=== PATIENT | female | born 1935 | race Caucasian/White ===

== ENCOUNTER 2020-01-02 00:39 | Inpatient (IN) | payer MEDICARE, OTHER ==
[~2020-01-02] VITALS: Ht 152.4 cm; Wt 63.5 kg
--- NOTE | 2020-01-02 00:01 | NUR ---
RN NOTE RECEIVED PT AWAKE IN BED, AO X 3-4, SPEAKS BULGARIAN ONLY, NO S/SX OF ACUTE DISTRESS AT THIS TIME. NO SOB NOTED. PATIENT'S BREATHING IS EVEN AND UNLABORED. SATURATING AT 98% ON ROOM AIR. NOTED IV SITE ON RIGHT AC G20 WITH NS AT 50 ML/HR; PATENT AND FLUSHING WELL,NO S/S OF INFECTION OR INFILTRATION. EDEMA NOTED ON LEFT HAND. PATIENT IS AMBULATORY WITH CANE. SAFETY MEASURES IMPLEMENTED PER PROTOCOL. PATIENT BED ALARM IS ON. HEAD OF BED ELEVATED. BED IS LOCKED, IN LOWEST POSITION AND SIDE RAILS UP. CALL LIGHT WITHIN REACH OF THE PATIENT. WILL CONTINUE TO MONITOR AND REASSESS FOR ANY CHANGES.
--- NOTE | 2020-01-02 02:00 | NUR ---
MS1 PROFESSIONAL ENGINEER NOTED RECEIVED DIRECT ADMIT FROM [place] THIS 84 YO FEMALE,ALERT,ORIENTED X3,SPEAK TURKMEN,WITH LITTLE LITHUANIAN,WITH CHIEF COMPLAINTS OF SWELLING,PAIN ON LEFT HAND X 3DAYS.BREATHING REGULAR,NO S/S OF RESPIRATORY DISTRESS.SALINE LOCK RIGHT AC #20 INTACT AND PATENT.NO SKIN ISSUES OTHER THAN LEFT HAND.AMBULATE WITH CANE,NO HX OF FALL WITH IN 30 DAYS, BUT [address]PLACE ON TEMPORARY DROPLET ISOLATION,AWAITING COVID TEST RESULT DONE IN [facility].DR GREEN MADE AWARE OF PATIENT ARRIVAL ON THE UNIT,WITH ORDERS NOTED AND CARRIED OUT.FALL PRECAUTION OBSERVED,BEDSIDE COMMODE AT BEDSIDE.BED ON LOWEST POSITION AND LOCKED.BED ALARM.CALL LIGHT IN REACH,NEEDS ANTICIPATED.
[2020-01-02 02:30] VITALS: BP 128/57
[2020-01-02] MEDS ORDERED: ONDANSETRON HCL/PF 4 MG/2 ML VIAL IVP PRN (02:30)
[2020-01-02] MEDS ORDERED: Z GUARD REMEDY 2 OZ OINT TP PRN (02:30)
[2020-01-02] MEDS ORDERED: MAGNESIUM HYDROXIDE 30 ML UDC PO PRN (02:30)
[2020-01-02] MEDS ORDERED: ZOLPIDEM TARTRATE 5 MG TABLET PO PRN (02:30)
[2020-01-02] MEDS ORDERED: ACETAMINOPHEN 325 MG TABLET PO PRN (02:30)
[2020-01-02] MEDS ORDERED: MAG HYDROX/AL HYDROX/SIMETH 30 ML UDC PO PRN (02:30)
[2020-01-02] MEDS ORDERED: CLINDAMYCIN IV RTU IN D5W 900 MG/50 ML PIGGYBACK IV SCH (02:30)
[2020-01-02] MEDS: CLINDAMYCIN IV RTU IN D5W 50 ML IV SCH ×3 (04:42→21:05)
--- NOTE | 2020-01-02 04:42 | NUR ---
SKINNING MACHINE FEEDER NOTES CLINDAMYCIN 900MG IN D5W 50ML ADMINISTERED ORDERED.
--- NOTE | 2020-01-02 06:10 | NUR ---
[id number] GREEN TO REQUEST FOR COVID TEST FOR PATIENT. HE SAID TO CALL [facility] FOR COVID RESULT DONE ON PATIENT.
--- NOTE | 2020-01-02 06:28 | NUR ---
MA1 RN NOTES RESTING COMFORTABLY ON BED,NO PAIN,LEFT HAND ELEVATED ON PILLOWS.SALINE LOCK REMaINS PATENT.DROPLET ISOLATION PENDING COVID TEST RESULT FROM [facility].DR GREEN PER CHARGE NURSE MAURILIO TO CALL [facility] TO GET RESULT OF COVID TEST.CALL LIGHT IN REACH,NEEDS ATTENDED.
[2020-01-02 06:29] LABS: BASOPHILS # (AUTO) 0.1 /CMM (0.0-0.2); BASOPHILS % (AUTO) 0.6 % (0.0-2.0); EOSINOPHILS % (AUTO) 0.3 % (0.0-6.0); HEMATOCRIT 37 % (33-45); HEMOGLOBIN 12.5 g/dL (11.5-14.8); LYMPHOCYTES # (AUTO) 1.5 /CMM (0.8-4.8); LYMPHOCYTES % (AUTO) 13.1 % (20.0-44.0); MEAN CORPUSCULAR HGB CONC 33 g/dl (31.0-36.0); MEAN CORPUSCULAR VOLUME 88 fL (82-100); MONOCYTES # (AUTO) 1.8 /CMM (0.1-1.30); MONOCYTES % (AUTO) 15.6 % (2.0-12.0); NEUTROPHILS # (AUTO) 8.3 /CMM (1.8-8.9); NEUTROPHILS % (AUTO) 70.4 % (43.0-81.0); PLATELET COUNT (AUTO) 217 /CMM (150-450); RED BLOOD CELL COUNT(AUTO) 4.26 MIL/uL (4.0-5.2); WHITE BLOOD COUNT (AUTO) 11.8 K/uL (4.3-11.0)
--- NOTE | 2020-01-02 06:30 | NUR ---
CALLED [facility] TO FOLLOW UP ON COVID TEST RESULT, PER ED STAFF RESULT NOT BACK YET.
[2020-01-02 06:33] LABS: CALCIUM, SERUM 8.5 mg/dL (8.5-10.1); CREATININE 1.1 mg/dL (0.6-1.3); MAGNESIUM 2.2 mg/dL (1.8-2.4); POTASSIUM 3.5 mmol/L (3.5-5.1)
--- NOTE | 2020-01-02 07:35 | NUR ---
RN OPENING NOTES: RECEIVED PATIENT IN BED AWAKE A/O X3. PATIENT IS ON RA 98% TOLERATING WELL. PATIENT DOES NOT SHOW ANY SIGNS OF ANY RESPIRATORY DISTRESS, SOB, DIFFICULTY BREATHING OR ANY PAIN. PTS IV HL AC #20, FLUSHED WELL. INTACT, PATENT, AND DRY. PATIENTS SAFETY MEASURES MAINTAINED, CALL LIGHT WITHIN REACH, WILL CONTINUE TO MONITOR.
[2020-01-02] MEDS ORDERED: METO25TA3 PO (08:06)
[2020-01-02] MEDS ORDERED: DENO60DI SQ (08:06)
[2020-01-02] MEDS ORDERED: LEVO25TA7 PO (08:06)
[2020-01-02] MEDS ORDERED: AMLO10TA7 PO (08:06)
[2020-01-02] MEDS ORDERED: MAGN400T26 PO (08:06)
[2020-01-02] MEDS ORDERED: TRAM50TA2 PO (08:06)
[2020-01-02] MEDS ORDERED: CHOL100040 PO (08:06)
[2020-01-02] MEDS ORDERED: MYRBETRIQ ER PO (08:06)
[2020-01-02] MEDS ORDERED: FAMO40TA7 PO (08:06)
--- NOTE | 2020-01-02 08:06 | NUR ---
NICOLA TERRY (SON) [phone] HUYVikram (DAUGHTER IN-LAW) [phone]
[2020-01-02 09:00] VITALS: BP 119/63
--- NOTE | 2020-01-02 10:04 | NUR ---
RECEIVED REPORT FROM MARAL WEBER. PATIENT IN BED, NO ACUTE DISTRESS NOTED. PATIENT ALERT & ORIENTED X3. PATIENT IS ON ROOM AIR, SATURATING AT 98%. PT IV ACCESS AC #20, FLUSHED WELL. INTACT, PATENT. PATIENTS SAFETY MEASURES MAINTAINED, CALL LIGHT WITHIN REACH, WILL CONTINUE TO MONITOR.
--- NOTE | 2020-01-02 10:31 | NUR ---
RN/RIZWANA NO CHEMICAL PROPHYLAXIS ORDERED FOR VTE RISK. DR. NIKKI THEODORE NOTIFIED. AWAITING ORDERS
[2020-01-02] MEDS: HYDROCODONE/APAP 5/325MG TABLET PO PRN ×2 (10:50→21:22)
[2020-01-02 13:00] VITALS: BP 119/63
[2020-01-02] MEDS ORDERED: FAMOTIDINE 40 MG TABLET PO SCH (13:00)
[2020-01-02] MEDS: CHOLECALCIFEROL (VITAMIN D 3) 400 UNIT TABLET PO SCH (13:41)
[2020-01-02] MEDS: AMLODIPINE BESYLATE 10 MG TABLET PO SCH (13:41)
[2020-01-02] MEDS: LEVOTHYROXINE SODIUM 25 MCG TABLET PO SCH (13:41)
[2020-01-02] MEDS: METOPROLOL SUCCINATE 25 MG TAB.SR.24H PO SCH (13:42)
[2020-01-02] MEDS: MAGNESIUM OXIDE 400 MG TABLET PO SCH (13:42)
[2020-01-02 17:00] VITALS: BP 114/71
--- NOTE | 2020-01-02 18:17 | NUR ---
PATIENT IN BED, NO ACUTE DISTRESS NOTED. PATIENT ALERT & ORIENTED X3. PATIENT IS ON ROOM AIR, SATURATING AT 94%. PT IV ACCESS AC #20, FLUSHED WELL. INTACT, PATENT. PATIENTS SAFETY MEASURES MAINTAINED, CALL LIGHT WITHIN REACH, WILL ENDORSE PLAN OF CARE TO ONCOMING NURSE FOR CONTINUITY OF CARE.
[2020-01-02] MEDS: IV NS 0.9% 1,000 ML IV PRN (18:55)
--- NOTE | 2020-01-02 19:30 | NUR ---
RN NOTE RECEIVED PT AWAKE IN BED, AO X 3-4, SPEAKS UKRAINIAN ONLY, NO S/SX OF ACUTE DISTRESS AT THIS TIME. NO SOB NOTED. PATIENT'S BREATHING IS EVEN AND UNLABORED. SATURATING AT 98% ON ROOM AIR. NOTED IV SITE ON RIGHT AC G20 WITH NS AT 50 ML/HR; PATENT AND FLUSHING WELL,NO S/S OF INFECTION OR INFILTRATION. EDEMA NOTED ON LEFT HAND. PATIENT IS AMBULATORY WITH CANE. SAFETY MEASURES IMPLEMENTED PER PROTOCOL. PATIENT BED ALARM IS ON. HEAD OF BED ELEVATED. BED IS LOCKED, IN LOWEST POSITION AND SIDE RAILS UP. CALL LIGHT WITHIN REACH OF THE PATIENT. WILL CONTINUE TO MONITOR AND REASSESS FOR ANY CHANGES.
--- NOTE | 2020-01-02 20:30 | NUR ---
RN NOTE NOTED IV LINE AT RIGHT AC LEAKING. REMOVED AND REINSERTED ANOTHER IV LINE G22 AT RIGHT FOREARM. ASEPTIC TECHNIQUE WAS OBSERVED. RESUMED IV FLUID OF NS AT 50 ML/HR. PATIENT COMPLAINING OF 9/10 PAIN AT LEFT HAND. WARM COMPRESS PLACED OVER AFFECTED AREA. PRN NORCO 5-325 MG ADMINISTERED ORDERED. WILL CONTINUE TO MONITOR AND REASSESS.
[2020-01-02 21:00] VITALS: BP 140/61
[2020-01-02] MEDS: FAMOTIDINE (20 MG) 20 MG TABLET PO SCH (21:09)
[2020-01-02] MEDS: HEPARIN SODIUM, PORCINE 5000 UNITS/1 ML VIAL SQ SCH (21:23)
[2020-01-03] MEDS: IV NS 0.9% 1,000 ML IV PRN (00:41)
[2020-01-03 01:00] VITALS: BP 128/67
[2020-01-03] MEDS: CLINDAMYCIN IV RTU IN D5W 50 ML IV SCH ×3 (03:53→20:26)
[2020-01-03 05:00] VITALS: BP 137/69
[2020-01-03 06:20] LABS: BASOPHILS # (AUTO) 0.1 /CMM (0.0-0.2); BASOPHILS % (AUTO) 1.2 % (0.0-2.0); HEMATOCRIT 35 % (33-45); HEMOGLOBIN 11.9 g/dL (11.5-14.8); LYMPHOCYTES # (AUTO) 1.6 /CMM (0.8-4.8); LYMPHOCYTES % (AUTO) 16.7 % (20.0-44.0); MEAN CORPUSCULAR HGB CONC 34 g/dl (31.0-36.0); MEAN CORPUSCULAR VOLUME 88 fL (82-100); MONOCYTES # (AUTO) 1.5 /CMM (0.1-1.30); MONOCYTES % (AUTO) 15.5 % (2.0-12.0); NEUTROPHILS # (AUTO) 6.4 /CMM (1.8-8.9); NEUTROPHILS % (AUTO) 65.6 % (43.0-81.0); PLATELET COUNT (AUTO) 201 /CMM (150-450); RED BLOOD CELL COUNT(AUTO) 4.01 MIL/uL (4.0-5.2); WHITE BLOOD COUNT (AUTO) 9.8 K/uL (4.3-11.0)
[2020-01-03 06:55] LABS: CALCIUM, SERUM 8.3 mg/dL (8.5-10.1); MAGNESIUM 2.2 mg/dL (1.8-2.4); PHOSPHORUS 3.4 mg/dL (2.5-4.9); POTASSIUM 4.1 mmol/L (3.5-5.1)
--- NOTE | 2020-01-03 07:30 | NUR ---
RN/RIZWANA RECEIVED PATIENT IN BED. NO ACUTE DISTRESS NOTED. PATIENT ALERT & ORIENTED X4. PATIENT ON ROOM AIR, SATURATING WELL AT 94%, BREATHING EVEN AND UNLABORED. PATIENT UPPER LEFT EXTREMITY ELEVATED. PATIENT IV ACCESS IN RIGHT FOREARM INTACT, PATENT, FLUSHED WELL. PATIENT SAFETY MEASURES MAINTAINED. CALL LIGHT WITHIN REACH. PATIENT EDUCATED AND REMINDED TO NOT GET UP, TO USE CALL LIGHT AND CALL FOR US IF NEEDED TO GET UP FOR ANY REASON. WILL CONTINUE TO MONITOR CLOSELY.
[2020-01-03] MEDS: LEVOTHYROXINE SODIUM 25 MCG TABLET PO SCH (08:14)
[2020-01-03] MEDS: AMLODIPINE BESYLATE 10 MG TABLET PO SCH (08:15)
[2020-01-03] MEDS: METOPROLOL SUCCINATE 25 MG TAB.SR.24H PO SCH (08:15)
[2020-01-03] MEDS: MAGNESIUM OXIDE 400 MG TABLET PO SCH (08:15)
[2020-01-03] MEDS: CHOLECALCIFEROL (VITAMIN D 3) 400 UNIT TABLET PO SCH (08:15)
[2020-01-03] MEDS: FAMOTIDINE (20 MG) 20 MG TABLET PO SCH ×2 (08:15→20:26)
[2020-01-03] MEDS: HEPARIN SODIUM, PORCINE 5000 UNITS/1 ML VIAL SQ SCH ×2 (08:17→20:26)
[2020-01-03 09:31] VITALS: BP 155/64
--- NOTE | 2020-01-03 10:40 | NUR ---
TRANSFERRED TO [facility] IN STABLE CONDITION. GAVE REPORT TO MARAL GOLDBERG FOR CONTINUITY OF CARE
--- NOTE | 2020-01-03 10:45 | NUR ---
MS RN NOTES PATIENT TRANSFERRED FROM [place], VIA GURNEY. ALERT AND ORIENTED X 4 ON ROOM AIR, WITH NO SIGNS OF RESPIRATORY DISTRESS AT THIS TIME AND WITH NON-LABORED BREATHING. IV ACCESS INTACT AND PATENT. CANE AT BEDSIDE. SAFETY PRECAUTIONS IMPLEMENTED WITH BED LOCKED, BED IN THE LOWEST POSITION, BILATERAL SIDE RAILS UP, AND CALL LIGHT WITHIN EASY REACH OF THE PATIENT. WILL CONTINUE TO MONITOR PATIENT.
[2020-01-03 11:23] VITALS: BP 136/97
[2020-01-03] MEDS: HYDROCODONE/APAP 5/325MG TABLET PO PRN (11:37)
[2020-01-03 16:00] VITALS: BP 97/55
--- NOTE | 2020-01-03 18:43 | NUR ---
MS RN NOTES PATIENT IN BED RESTING COMFORTABLY. ALERT AND ORIENTED X 4, ON M[place] SPEAKING. ON ROOM AIR WITH NO SIGNS OF RESPIRATORY DISTRESS AT THIS TIME, WITH NON-LABORED BREATHING. IV ACCESS INTACT AND PATENT, INFUSING NORMAL SALINE AT 50ml/hr. PATIENT CANE AT BEDSIDE, AMBULATORY WITH ASSISTANCE. SKIN KEPT CLEAN AND DRY. MET ALL OF PATIENT'S NEEDS. SAFETY PRECAUTIONS IMPLEMENTED WITH BED LOCKED, BED IN THE LOWEST POSITION, BED ALARM ON, BILATERAL SIDE RAILS UP, AND CALL LIGHT WITHIN EASY REACH OF PATIENT. WILL ENDORSE PLAN OF CARE TO UPCOMING NURSE.
[2020-01-03 19:06] LABS: APPEARANCE,URINE CLEAR (CLEAR); BILIRUBIN,URINE NEGATIVE (NEGATIVE); BLOOD, URINE SMALL Ery/uL (NEGATIVE); COLOR,URINE YELLOW (YELLOW); KETONES,URINE NEGATIVE (NEGATIVE); LEUKOCYTE ESTERASE ,URINE SMALL (NEGATIVE); NITRITE, URINE NEGATIVE (NEGATIVE); PH,URINE 5.5 (5.0-8.0); PROTEIN,URINE NEGATIVE (NEGATIVE); UGLUCOSE NEGATIVE (NEGATIVE); UROBILINOGEN,URINE 0.2 EU/dL (0.2)
--- NOTE | 2020-01-03 19:28 | NUR ---
MS RN OPENING NOTES PATIENT RECEIVED RESTING IN BED A/O X 4. STABLE ON RA WITH BREATHING EVEN AND UNLABORED, NO SOB NOTED. NO SIGNS OF ACUTE DISTRESS. NO COMPLAINTS OF PAIN OR DISCOMFORT. IV LOCATED ON R FA #22 RUNNING NS @ 50 ML/ HR. SAFETY PRECAUTIONS IN PLACE WITH BED IN LOWEST POSITION, CALL LIGHT WITHIN REACH, BREAKS ON, SIDE RAILS UP. WILL CONTINUE TO MONITOR THROUGHOUT THE NIGHT.
[2020-01-03 20:00] VITALS: BP 108/41
[2020-01-03] MEDS: TRAMADOL HCL 50 MG TABLET PO PRN (20:37)
--- NOTE | 2020-01-03 20:40 | NUR ---
MS RN NOTES patient complaining of pain on left arm and left knee of 7/10. prn tramadol administered.
[2020-01-04] MEDS: CLINDAMYCIN IV RTU IN D5W 50 ML IV SCH ×3 (04:23→19:30)
[2020-01-04] MEDS: IV NS 0.9% 1,000 ML IV PRN (04:28)
[2020-01-04 06:33] LABS: BASOPHILS # (AUTO) 0.1 /CMM (0.0-0.2); BASOPHILS % (AUTO) 0.8 % (0.0-2.0); EOSINOPHILS % (AUTO) 1.8 % (0.0-6.0); HEMATOCRIT 35 % (33-45); HEMOGLOBIN 11.8 g/dL (11.5-14.8); LYMPHOCYTES # (AUTO) 1.5 /CMM (0.8-4.8); LYMPHOCYTES % (AUTO) 18.6 % (20.0-44.0); MEAN CORPUSCULAR HGB CONC 33 g/dl (31.0-36.0); MEAN CORPUSCULAR VOLUME 89 fL (82-100); MONOCYTES # (AUTO) 1.5 /CMM (0.1-1.30); MONOCYTES % (AUTO) 18.3 % (2.0-12.0); NEUTROPHILS # (AUTO) 4.9 /CMM (1.8-8.9); NEUTROPHILS % (AUTO) 60.5 % (43.0-81.0); PLATELET COUNT (AUTO) 222 /CMM (150-450); RED BLOOD CELL COUNT(AUTO) 3.99 MIL/uL (4.0-5.2); WHITE BLOOD COUNT (AUTO) 8.1 K/uL (4.3-11.0)
[2020-01-04 06:56] LABS: PHOSPHORUS 3.6 mg/dL (2.5-4.9); POTASSIUM 4.1 mmol/L (3.5-5.1)
--- NOTE | 2020-01-04 06:59 | NUR ---
MS RN CLOSING NOTES PATIENT RESTING IN BED A/O X 4. STABLE ON RA WITH BREATHING EVEN AND UNLABORED, NO SOB NOTED. NO SIGNS OF ACUTE DISTRESS. NO COMPLAINTS OF PAIN OR DISCOMFORT. IV LOCATED ON R FA #22 RUNNING NS @ 50 ML/ HR. SAFETY PRECAUTIONS IN PLACE WITH BED IN LOWEST POSITION, CALL LIGHT WITHIN REACH, BREAKS ON, SIDE RAILS UP. ALL NEEDS ATTENDED TO. WILL ENDORSE TO ONCOMING SHIFT ABOUT JULIO CESAR.
--- NOTE | 2020-01-04 07:51 | NUR ---
rn notes patient received on room air, no sob noted, a/o x4 and is telugu speaking. BRP at this time, L hand swelling. R FA 22 with 50 ml per hour NS running. bed at the lowest setting, call light within reach, side rails up x2.
[2020-01-04 08:00] VITALS: BP 121/63
[2020-01-04] MEDS: HEPARIN SODIUM, PORCINE 5000 UNITS/1 ML VIAL SQ SCH ×2 (08:09→20:05)
[2020-01-04] MEDS: METOPROLOL SUCCINATE 25 MG TAB.SR.24H PO SCH (08:09)
[2020-01-04] MEDS: CHOLECALCIFEROL (VITAMIN D 3) 400 UNIT TABLET PO SCH (08:09)
[2020-01-04] MEDS: MAGNESIUM OXIDE 400 MG TABLET PO SCH (08:09)
[2020-01-04] MEDS: FAMOTIDINE (20 MG) 20 MG TABLET PO SCH ×2 (08:09→20:04)
[2020-01-04] MEDS: LEVOTHYROXINE SODIUM 25 MCG TABLET PO SCH (08:09)
[2020-01-04] MEDS: AMLODIPINE BESYLATE 10 MG TABLET PO SCH (08:14)
[2020-01-04 09:05] LABS: BAND % (MANUAL) 9 % (0.0-5.0); EOSINOPHILS % (MANUAL) 2 % (0-4); LYMPHOCYTES % (MANUAL) 21 % (16-48); MONOCYTES % (MANUAL) 16 % (0-11.0); NEUTROPHILS % (MANUAL) 52 (42-76)
[2020-01-04] MEDS: HYDROCODONE/APAP 5/325MG TABLET PO PRN ×2 (10:26→17:28)
[2020-01-04 16:00] VITALS: BP 117/61
--- NOTE | 2020-01-04 18:56 | NUR ---
rn notes patient remains on room air, no sob noted, a/o x4 and is scottish speaking. BRP at this time, L hand swelling. R FA 22 with 50 ml per hour NS running. bed at the lowest setting, call light within reach, side rails up x2.
--- NOTE | 2020-01-04 19:43 | NUR ---
MS MARAL OPEN NOTES PATIENT IS SITTING IN BED, WATCHING TV. A/O X4, FRENCH SPEAKING. ON RA, NO SOB/ ACUTE RESPIRATORY DISTRESS NOTED. IV IN RIGHT AC IS PATENT AND INTACT. PATIENT ABLE TO AMBULATE WITH CANE. BED IS IN LOWEST LOCKED POSITION WITH SIDE RAILS UP X3, SEMI FOWLERS. CALL LIGHT IS WITHIN REACH. WILL CONTINUE TO MONITOR.
[2020-01-04 20:00] VITALS: BP 120/61
[2020-01-05] MEDS: TRAMADOL HCL 50 MG TABLET PO PRN (01:06)
[2020-01-05] MEDS: CLINDAMYCIN IV RTU IN D5W 50 ML IV SCH ×2 (03:32→11:45)
[2020-01-05] MEDS: IV NS 0.9% 1,000 ML IV PRN (05:55)
--- NOTE | 2020-01-05 06:41 | NUR ---
MS RN CLOSE NOTES PATIENT IS LAYING IN BED. A/O X4. ON RA, NO SOB/ ACUTE RESPIRATORY DISTRESS NOTED. IV IN RIGHT AC #22G IS PATENT AND INTACT RUNNING NS @50 MLS/HR. APPEARS COMFORTABLE/ NO COMPLAINTS OF PAIN AT THE MOMENT. PATIENT IS ABLE TO AMBULATE WITH CANE. BED IS IN LOWEST LOCKED POSITION WITH SIDE RAILS UP X3, SEMI FOWLERS. BED ALARM ON. CALL LIGHT IS WITHIN REACH. WILL ENDORSE TO AM NURSE.
[2020-01-05 08:00] VITALS: BP 134/64
[2020-01-05] MEDS: FAMOTIDINE (20 MG) 20 MG TABLET PO SCH (08:16)
[2020-01-05 08:17] VITALS: BP 134/64
[2020-01-05] MEDS: LEVOTHYROXINE SODIUM 25 MCG TABLET PO SCH (08:17)
[2020-01-05] MEDS: AMLODIPINE BESYLATE 10 MG TABLET PO SCH (08:17)
[2020-01-05] MEDS: METOPROLOL SUCCINATE 25 MG TAB.SR.24H PO SCH (08:17)
[2020-01-05] MEDS: MAGNESIUM OXIDE 400 MG TABLET PO SCH (08:17)
[2020-01-05] MEDS: HEPARIN SODIUM, PORCINE 5000 UNITS/1 ML VIAL SQ SCH (08:18)
[2020-01-05] MEDS: CHOLECALCIFEROL (VITAMIN D 3) 400 UNIT TABLET PO SCH (08:19)
[2020-01-05] MEDS: HYDROCODONE/APAP 5/325MG TABLET PO PRN (08:39)
--- NOTE | 2020-01-05 16:49 | NUR ---
rn notes patient dc at this time. no sob noted, VSS, no need for photos since a new one was taken last night (Mery). patient's paper works given to family member, along prescription. no further questions
== END 2020-01-05 16:40 | disposition home health service (06) | DRG 602 ==
LOC: TELE1 01:53 → MEDSG1 03:06 → MED 01-03 10:23
PROVIDERS: ADMIT Nurse Practitioner Acute Care
DX: L03.114 Cellulitis of left upper limb (principal); N17.0 Acute kidney failure with tubular necrosis; I12.9 Hypertensive chronic kidney disease with stage 1 through stage 4 chronic kidney disease, or unspecified chronic kidney disease; E03.9 Hypothyroidism, unspecified; M19.90 Unspecified osteoarthritis, unspecified site; N18.9 Chronic kidney disease, unspecified; M06.9 Rheumatoid arthritis, unspecified
CPT/HCPCS: 36415; 80048-TC; 80061-TC; 81000-TC; 83735-TC; 84100-TC; 85025-TC; 87081-TC; G0378; J1644; J2405; J3490; J7030; J7050; J7060